=== PATIENT | male | born 1970 | race Caucasian/White ===

== ENCOUNTER 2016-09-05 10:52 | Emergency (ER) | payer OTHER ==
[~2016-09-05 10:52] MED LIST: BACTRIM 400-801 TA1; BACTRIM DS TABL1 TA1 PO; ELIMITE60 GM TOP; FLEXERIL10 MG PO; HYCODAN60 ML 5MG/ PO; LORTAB 5-325 M1 EACH PO; MEDROL4 MG/DOSE- PO; NO MEDICATIONS; PHENERGAN25 M1 PO; VOLTAREN75 MG PO
== END 2016-09-05 11:31 | disposition home or self-care (01) ==
LOC: SED 10:52
DX: M77.11 Lateral epicondylitis, right elbow (principal)
CPT/HCPCS: 99283